=== PATIENT | female | born 1970 | race American Indian/Alaskan Native ===

== ENCOUNTER 2017-09-08 08:55 | Outpatient (CLI) | payer BC ==
[2017-09-08] MEDS ORDERED: Iopamidol 370 76% 100 ML VIAL ONE (13:10)
== END 2017-09-08 08:56 | disposition home or self-care (01) ==
LOC: BICCT 08:55
PROVIDERS: ATTEND Family Medicine
DX: R19.09 Other intra-abdominal and pelvic swelling, mass and lump (principal); N20.0 Calculus of kidney; N85.2 Hypertrophy of uterus
CPT/HCPCS: 74177

== ENCOUNTER 2017-10-18 08:28 | Outpatient (CLI) | payer BC | END 2017-10-18 08:29 | disposition home or self-care (01) | LOC: BICMAMMO 08:28 | PROVIDERS: ATTEND Student in an Organized Health Care Education/Training Program | DX: Z12.31 Encounter for screening mammogram for malignant neoplasm of breast (principal) | CPT/HCPCS: 77063; 77067 ==